=== PATIENT | female | born 1995 | race Caucasian/White ===

== ENCOUNTER 2017-05-11 16:07 | Inpatient (IN) | payer BC, OTHER ==
[~2017-05-11] VITALS: Ht 172.7 cm; Wt 99.8 kg
[2017-05-11] MEDS ORDERED: MAG HYDROX/AL HYDROX/SIMETH 30 ML LIQUID UDC PO PRN (20:00)
[2017-05-11] MEDS ORDERED: diphenhydrAMINE 50 MG CAPSULE PO PRN (20:00)
[2017-05-11] MEDS ORDERED: ONDANSETRON 4 MG/2 ML VIAL IM PRN (20:00)
[2017-05-11] MEDS ORDERED: NICOTINE POLACRILEX 4 MG GUM-PK OF TEN BC PRN (20:00)
[2017-05-11] MEDS ORDERED: ONDANSETRON ODT 4 MG TAB.RAPDIS SL PRN (20:00)
[2017-05-11] MEDS ORDERED: MAGNESIUM HYDROXIDE 30 ML LIQUID UDC PO PRN (20:00)
[2017-05-11] MEDS ORDERED: LORAZEPAM 1 MG TABLET PO PRN (20:00)
[2017-05-11] MEDS ORDERED: MIRALAX 17 GM POWD.PACK PO PRN (20:00)
[2017-05-11] MEDS ORDERED: BUPRENORPHINE HCL 2 MG TAB.SUBL SL PRN (20:00)
[2017-05-11] MEDS ORDERED: DICYCLOMINE HCL 20 MG TABLET PO PRN (20:00)
[2017-05-11] MEDS ORDERED: LOPERAMIDE HCL 2 MG CAPSULE PO PRN ×2 (20:00)
[2017-05-11] MEDS ORDERED: LORAZEPAM 2 MG/1 ML VIAL IM PRN (20:00)
--- NOTE | 2017-05-11 20:05 | NUR ---
INTAKE ASSESSMENT BP: 142/62 HR:101 RR:18, SpO2: 95% T:98.0 Pt is in stable condition and able to be admitted on the unit. Unit protocols regarding mediation administration and vital signs every 4 hours were explained. Pt verbalized understanding. Will continue admission upon arrival on the unit.
[2017-05-11] MEDS ORDERED: RIVA20TA PO (20:14)
[2017-05-11] MEDS ORDERED: DOXE50CA4 PO (20:14)
[2017-05-11 20:53] LABS: *URINE HCG, QUAL NEGATIVE (NEGATIVE)
[2017-05-11] MEDS ORDERED: LORAZEPAM 1 MG TABLET PO SCH (21:00)
[2017-05-11] MEDS ORDERED: BUPRENORPHINE HCL 2 MG TAB.SUBL SL SCH (21:00)
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
[2017-05-11 21:01] LABS: *AMPHETAMINE, URINE NEGATIVE (NEGATIVE); *BARBITURATE, URINE NEGATIVE (NEGATIVE); *CANNABINOID, URINE NEGATIVE (NEGATIVE); *COCCAINE, URINE NEGATIVE (NEGATIVE); *OPIATE, URINE POSITIVE (NEGATIVE); *PHENCYCLIDINE SCREEN,URINE NEGATIVE (NEGATIVE)
[2017-05-11] MEDS: GABAPENTIN 300 MG CAPSULE PO SCH (21:14)
--- NOTE | 2017-05-11 21:15 | NUR ---
ONE TIME SUBUTEX/ATIVAN Pt complains of nausea, body aches, chills, sweats, anxiety, agitation, and irritability. Pt noted with flushed face and facial grimacing. COWS: 12, CIWA:11. One time Subutex and Ativan administered as ordered. Safety measures in place. Will continue to monitor.
[2017-05-11 21:21] LABS: BASOPHILS % (AUTO) 0.7 % (0.0-2.0); EOSINOPHILS # (AUTO) 0.2 K/uL (0.0-0.7); EOSINOPHILS % (AUTO) 3.3 % (0.0-7.0); HEMATOCRIT 35.5 % (31.2-41.9); LYMPHOCYTES # (AUTO) 1.7 K/uL (20.0-40.0); LYMPHOCYTES % (AUTO) 24.4 % (20.5-51.5); MEAN CORPUSCULAR HGB CONC 34 g/dL (32.3-35.6); MEAN CORPUSCULAR VOLUME 79.7 fL (75.5-95.3); MONOCYTES # (AUTO) 0.5 K/uL (2.0-10.0); MONOCYTES % (AUTO) 7.3 % (0.0-11.0); NEUTROPHILS # (AUTO) 4.4 K/uL (1.8-8.9); NEUTROPHILS % (AUTO) 64.3 % (38.5-71.5); PLATELET COUNT (AUTO) 271 K/uL (179-408); RED BLOOD CELL COUNT(AUTO) 4.45 MIL/uL (3.63-4.92); WHITE BLOOD COUNT (AUTO) 6.8 K/uL (3.8-11.8)
[2017-05-11 21:32] LABS: ALANINE AMINOTRANSFERASE 68 U/L (14-59); ALKALINE PHOSPHATASE 71 U/L (50-136); ASPARTATE AMINOTRANSFERASE 42 U/L (15-37); BILIRUBIN,TOTAL 0.7 mg/dL (0.2-1.0); CARBON DIOXIDE 25 mmol/L (21-32); CHLORIDE 101 mmol/L (98-107); GLUCOSE 117 mg/dL (74-106); MAGNESIUM 1.9 mg/dL (1.8-2.4); TOTAL PROTEIN, SERUM 7.3 g/dL (6.4-8.2); UREA NITROGEN, BLOOD 14 mg/dL (7-18)
[2017-05-11 21:37] LABS: POTASSIUM 2.8 mmol/L (3.5-5.1)
[2017-05-11] MEDS ORDERED: POTASSIUM CHLORIDE 20 MEQ TAB.PRT.SR PO ONE (21:45)
--- NOTE | 2017-05-11 22:15 | NUR ---
REASSESSMENT Pt lying in bed with eyes closed noted to be asleep. Breathing is even and unlabored. Safety measures in place. Will continue to monitor.
[2017-05-11 22:17] LABS: ETHANOL < 3 MG/DL (0-0)
--- NOTE | 2017-05-11 22:50 | NUR ---
POTASSIUM Pt noted with potassium 2.8. MD made aware with new order for K-DUR 40meQ administered as ordered. Breathing is even and unlabored, safety measures in place. Will continue to monitor.
[2017-05-11] MEDS ORDERED: NICOTINE 14 MG/24HR PATCH TD PRN (23:00)
--- NOTE | 2017-05-12 01:00 | NUR ---
BEHAVIOR NOTE Pt was noted with odd behavior. Primary nurse checked on pt, pt was in the bathroom for half an hour sitting on the toilet observed to be changing feminine products. Pt stated " I'm just on my period !" Encouraged pt to go back to bed after using the restroom. Pt stated " Okay, I'll be there in a second." Pt was noted to be fatigued, drowsy, defensive, and angry. Provided redirection, and re-oriented pt. Pt verbalized understanding.
--- NOTE | 2017-05-12 01:15 | NUR ---
BEHAVIOR NOTE Pt still noted to be in bathroom. Primary nursed checked on pt. Pt was noted to be sitting on toilet facing the wall in her bra. When asked if pt was okay, pt stated " yeah, I'm fine I'm just on my period." Encouraged pt to get dressed and lay down to try and get some sleep. Pt stated " OK!" Primary nurse in room to observe for pt safety. Pt came out of the bathroom and stated " I don't know what happened, I don't remember anything after my shower." Reoriented pt, and explained to her what happened. Pt verbalized understanding. Assisted pt safely back to bed. Will continue to monitor.
--- NOTE | 2017-05-12 02:21 | NUR ---
PRN ATIVAN Pt noted to be anxious, restless and is continuously going down to smoke. PRN Ativan administered as ordered for CIWA:11. Safety measures in place. Will monitor. Addendum: 05/13/17 at 0239 by JUAN FUNG RN ERROR IN CHARTING. WRONG DATE
--- NOTE | 2017-05-12 03:01 | NUR ---
BEHAVIOR NOTE Per BOTTOM FILLER, pt was noted to be in the bathroom dozing off while sitting on the toilet. Primary nurse and BOTTOM FILLER in pt's room monitoring pt for safety. Pt was starting to get agitated, angry, irritable, impatient, uncooperative and defensive with staff. Pt stated " I'm fine!" Assisted pt safely back to bed, encouraged rest and sleep. Pt then asked " Can I go down to smoke?" Pt was told she is unable to smoke because she was observed to be dozing off in the bathroom, and for safety reasons she is not allowed to smoke at this time. Primary nurse firmly told pt she needs to stay in bed and try to sleep. Pt responded aggressively, "Ugh, fine! Whatever." Side rails up x2 for safety. Call light within reach. Will continue to monitor.
[2017-05-12 04:00] VITALS: BP 133/73
[2017-05-12] MEDS: LORAZEPAM 1 MG TABLET PO PRN ×4 (04:29→17:14)
[2017-05-12] MEDS: METHOCARBAMOL 750 MG TABLET PO PRN (04:29)
--- NOTE | 2017-05-12 04:29 | NUR ---
PRN ATIVAN/ROBAXIN Pt complains of leg cramps, body aches, increased anxiety and agitation, chills and sweats. CIWA:9. PRN Ativan and Robaxin administered as ordered. Safety measures in place. Will continue to monitor.
--- NOTE | 2017-05-12 05:29 | NUR ---
PRN REASSESSMENT PRN medication effective. Pt is lying in bed with eyes closed noted to be asleep. Breathing is even and unlabored, respirations 16, safety measures in place. Will continue to monitor.
--- NOTE | 2017-05-12 07:04 | NUR ---
END OF SHIFT Pt is a 21 year old female patient admitted on 05/11/17 for Heroin withdrawal. Pt remains alert and oriented x4. She is scheduled to start a 5 day Subutex taper today (05/12/17). She received one time orders of Ativan 2 mg and Subutex 4 mg. She was noted with odd behavior during the shift and was observed to be dozing off while in the bathroom and her room. She was noted to be anxious, agitated, irritable, restless, and labile. She also had complaints of body aches, leg cramps, chills and sweats. She received PRN Ativan 1mg and Robaxin at 0429. She took a total of two showers during shift because she said it helps to relieve her leg cramps and body aches. She slept a total of 2 hrs, Intake:855mL, Void:x3, BM:0, Last COWS:9 CIWA:9 at 0400. Breathing is even and unlabored. Safety measures in place. Will endorse to AM shift.
--- NOTE | 2017-05-12 07:45 | NUR ---
START OF SHIFT Endorse rcvd from ongoing nurse, client's room noted with scattered clothes on the floor, several bags of potato chips and candy bars open and spilled on the side table and floor. Client is in bed in a position, a/o to name, place and situation, she presents anxious mood, flat affect, red, teary eyes, runny nose, dark circles under her eyes, flushed face, fine tremors, clammy skin, she has difficulty concentrating. Client reports abdominal cramps, body aches, feeling of panic, cold/chills, restless legs, nausea, and fatigue. Encourage client to increase PO fluid as tolerated to facilitate detox. Encourage client to participate in ADL and to attend group therapy for skills to maintain sober. PRN Ativan 1mg PO for increased anxiety and agitation, chills and sweats, CIWA 9, Robaxin 750mg PO for myalgia. Client slept 2 hrs. Intermittent Pneumatic CD at bedside. Seizure precautions rendered. Call light within reach.
[2017-05-12 08:00] VITALS: BP 115/72
[2017-05-12] MEDS ORDERED: TUBERCULIN,PURIF.PROT.DERIV. 5 TU/0.1 ML TEST ID ONE (09:00)
[2017-05-12] MEDS: GABAPENTIN 300 MG CAPSULE PO SCH ×2 (09:22→20:32)
--- NOTE | 2017-05-12 09:22 | NUR ---
PPD test administered to L forearm, client tolerated well.
--- NOTE | 2017-05-12 09:22 | NUR ---
PRN Ativan 1mg PO administered for anxiety, irritability, intermittent nausea, feeling of panic, restlessness, headache, CIWA 12. Call light within reach.
[2017-05-12] MEDS: BUPRENORPHINE HCL 2 MG TAB.SUBL SL SCH ×3 (09:23→20:34)
[2017-05-12] MEDS: XARELTO 20 MG PO SCH (09:51)
--- NOTE | 2017-05-12 10:22 | NUR ---
Reassess PRN Ativan 1mg PO client is sitting in bed, she is eating a candy bar, watching TV, she stated, "I feel a little bit less anxious.", BRITTANY 8. Call light within reach.
[2017-05-12 12:00] VITALS: BP 122/71
--- NOTE | 2017-05-12 12:14 | NUR ---
PRN Ativan 1mg PO administered for anxiety, irritability, intermittent nausea, feeling of panic, restlessness, headache, difficulty concentrating, CIWA 12. Call light within reach.
--- NOTE | 2017-05-12 13:14 | NUR ---
Reassess PRN Ativan 1mg PO, client stated, "I still feel anxious and irritable, I do not think this medications you are giving me are working." she continues to have intermittent nausea, feeling of panic,and difficulty concentrating, CIWA 8. Call light within reach.
[2017-05-12] MEDS ORDERED: POTASSIUM CHLORIDE 20 MEQ TAB.PRT.SR PO ONE (15:00)
[2017-05-12 16:59] VITALS: BP 109/68
--- NOTE | 2017-05-12 17:14 | NUR ---
PRN Ativan 1mg PO administered for anxiety and irritability, client stated, "Why do you guys have to keep checking on me like every 15 minutes, this is very annoying." she reports intermittent nausea, feeling of panic, restlessness, seats, cold/chills,and difficulty concentrating, CIWA 12. Call light within reach.
--- NOTE | 2017-05-12 18:14 | NUR ---
Reassess PRN Ativan 1mg client is able to walk around the hallway, she took a shower. Client stated, "I am feeling a little bit better, I am still irritable for some reason." BRITTANY 8. Call light within reach.
--- NOTE | 2017-05-12 19:14 | NUR ---
END OF SHIFT Endorsed client to incoming nurse, client is in room, she is a/o x 4, client continues to present with anxious mood, flat affect, runny nose, flushed face, tremors, clammy skin, difficulty concentrating, abdominal cramps, body aches, feeling of panic, cold/chills, restless legs, nausea, and fatigue. Client is not compliant with group therapy due to withdrawal symptoms. PRN Ativan 1mg PO x 3 administered for CIWA 12, see eMAR. Client remains isolated in her room for the most part. Client consumed ~ 50 % of meals. Adequate PO fluid intake 4000mL, void x 10, stool x1. Last CIWA 8/COWS 17 @ 1700. Call light within reach.
--- NOTE | 2017-05-12 19:30 | NUR ---
STAT OF SHIFT Received 21 year old female patient admitted on 05/11/17 for Heroin withdrawal. Pt was started on a 5 day Subutex taper and is scheduled to start a 5 day Ativan taper tonight. Pt is alert and oriented x4. She is noted to be impatient, easily agitated, anxious, irritable, angry, labile, restless, and depressed. She complains of chills, diaphoresis, difficulty concentrating, muscle pain, and restless legs. Last COWS:17, CIWA: 12 at 1700. Breathing is even and unlabored. Safety measures in place. Will continue to monitor.
[2017-05-12 20:00] VITALS: BP 124/89
[2017-05-12] MEDS: CLONIDINE HCL 0.1 MG TABLET PO PRN (20:32)
--- NOTE | 2017-05-12 20:32 | NUR ---
PRN CLONIDINE Pt complains of anxiety, agitation, chills, and sweats. PRN Clonidine administered as ordered. Breathing is even and unlabored. Safety measures in place. Will continue to monitor.
[2017-05-12] MEDS ORDERED: LORAZEPAM 1 MG TABLET PO SCH (21:00)
--- NOTE | 2017-05-12 21:32 | NUR ---
PRN REASSESSMENT PRN medication effective. Pt is lying in bed with eyes closed noted to be asleep. Breathing is even and unlabored, safety measures in place. Will monitor.
[2017-05-13 00:15] VITALS: BP 134/89
[2017-05-13] MEDS: LORAZEPAM 1 MG TABLET PO PRN (02:21)
--- NOTE | 2017-05-13 02:21 | NUR ---
PRN ATIVAN Pt noted to be anxious, restless and is continuously going down to smoke. PRN Ativan administered as ordered for CIWA:11. Safety measures in place. Will monitor.
--- NOTE | 2017-05-13 03:21 | NUR ---
PRN REASSESSMENT PRN medication effective. Pt is lying in bed with eyes closed noted to be asleep. Breathing is even and unlabored. Safety measures in place, 1:1 sitter at bedside. Will monitor.
--- NOTE | 2017-05-13 04:00 | NUR ---
VITALS REFUSED, COWS/CIWA DEFERRED Pt reported she has difficulty sleeping and did not want to be woken up for 0400 vitals. COWS/CIWA deferred d/t pt lying in bed with eyes closed noted to be asleep. Breathing even and unlabored. Safety measures in place. Will continue to monitor.
--- NOTE | 2017-05-13 07:05 | NUR ---
END OF SHIFT Pt is a 21 year old female patient admitted on 05/11/17 for Heroin withdrawal. She continues on a 5 day Subutex and 5 day Ativan taper and is tolerating well. Pt remains alert and oriented x4. She was noted to be drowsy, angry, irritable, restless, anxious, and labile during the shift. She had complaints of complains of body aches, restless legs, anxiety, and agitation. During the shift, she was noted to doze off while sitting up in bed and using the bathroom. Pt was placed on a 1:1 for safety. She received PRN clonidine at 2031 and PRN Ativan at 220. She was able to sleep a total of 4 hrs, Intake: 1460mL, Void: x5, BM:0, COWS: 11, CIWA:11 at 0200. Breathing is even and unlabored. Safety measures in place. Will endorse to AM shift.
--- NOTE | 2017-05-13 07:20 | NUR ---
Nursing note Client refused blood drawn, risk and benefits explained to client, but she still refused. and CN made aware. NNO at this time.
--- NOTE | 2017-05-13 07:35 | NUR ---
START OF SHIFT Endorse rcvd from ongoing nurse, client is sitting in bed, she is a/o to name, place and situation. She presents with anxious mood she constantly runs her hands over her hair, unable to stop moving her legs, flat affect, flushed face, dark eyes under her eyes and dry lips, extremities with clammy skin, goosebump, tremors, difficulty concentrating. Client reports feeling really tired, but unable to shut off her thoughts, she stated, "I have this feelings of panic, you know, like i just can't relax, it's crazy." decrease appetite, cold/chills. Bedside table has 7 open drinks, scattered candies noted on the floor, towels on the floor. Encourage client to increase PO fluid intake to facilitate detox. Encourage client to attend group therapy to learn skills to maintain sobriety. PRN Ativan 1mg PO, Rbaxin 750mg PO and Benadryl 50mg PO administered overnight, see eMar. 1:1 at bedside for safety. Call light within reach.
[2017-05-13 08:11] LABS: HEPATITIS B SURFACE AG Negative (Negative)
--- NOTE | 2017-05-13 08:30 | NUR ---
Client requests to be off 1:1 stating, "I am not a combative person, I don't know why I have to have somebody in my room at all time, this is very annoying, I want you to take this girl out of my room." Educate client on the reason for 1:1 wich is for safety, client was noted to be dozing off while sitting in bed and toilet bowl. She stated, "Yeah, maybe that was yesterday, but not today." CN notified
[2017-05-13 08:31] VITALS: BP 111/74
[2017-05-13] MEDS: GABAPENTIN 300 MG CAPSULE PO SCH ×2 (08:55→21:37)
[2017-05-13] MEDS: LORAZEPAM 1 MG TABLET PO SCH ×2 (08:55→12:31)
[2017-05-13] MEDS: XARELTO 20 MG PO SCH (08:57)
--- NOTE | 2017-05-13 08:57 | NUR ---
Xarelto 20mg PO administered, CN double check/witness administration of medication.
[2017-05-13] MEDS ORDERED: HYDROXYZINE PAMOATE 25 MG CAPSULE PO PRN (09:00)
[2017-05-13] MEDS ORDERED: BUPRENORPHINE HCL 2 MG TAB.SUBL SL SCH (09:00)
--- NOTE | 2017-05-13 09:58 | NUR ---
Therapist prompted client about group times. Client stated she will attend groups today.
--- NOTE | 2017-05-13 10:00 | NUR ---
Client is off 1:1 sitter for safety per Dr[address] Alonso.
[2017-05-13 12:20] VITALS: BP 120/83
[2017-05-13 13:49] LABS: BILIRUBIN,DIRECT 0.1 mg/dL (0.0-0.2); BILIRUBIN,TOTAL 0.3 mg/dL (0.2-1.0); CREATININE 0.9 mg/dL (0.6-1.3); MAGNESIUM 1.7 mg/dL (1.8-2.4); POTASSIUM 4.4 mmol/L (3.5-5.1); TOTAL PROTEIN, SERUM 7.1 g/dL (6.4-8.2)
[2017-05-13] MEDS: BUPRENORPHINE HCL 2 MG TAB.SUBL SL SCH ×2 (14:09→21:37)
[2017-05-13] MEDS ORDERED: MAGNESIUM OXIDE 400 MG TABLET PO ONE (14:45)
[2017-05-13 16:52] VITALS: BP 123/75
[2017-05-13] MEDS ORDERED: LORAZEPAM 1 MG TABLET PO SCH ×2 (17:00→21:00)
--- NOTE | 2017-05-13 19:07 | NUR ---
END OF SHIFT Endorse client to incoming nurse, client is in bed, she sound asleep, easy to arouse, RR 16, even-nonlabored. Client was not compliant with group therapy due to withdrawal symptoms flushed face, clammy skin, goosebump, tremors, difficulty concentrating, decrease appetite, cold/chills. Adequate PO fluid intake 2750mL, void x 10, stool x 1. Consumes ~50 of meals. Last ciwa 13/ COWS 14 @ 1600. Call light within reach.
--- NOTE | 2017-05-13 19:20 | NUR ---
Start of Shift Patient Received. Patient is noted in bed sleeping. Breathing even and non labored. Per endorsement, patient was removed from 1:1 per MD orders. Patient continues on Modified Subutex and Ativan tapers and is tolerating well. Patient is not compliant with group therapy due to increased signs and symptoms of withdrawal. Last noted CIWA 13 and COWS 14. No PRN medications administered. All needs attended to promptly. Will continue to monitor.
[2017-05-13 20:30] VITALS: BP 119/78
--- NOTE | 2017-05-13 22:00 | NUR ---
1:1 Sitter Patient was placed on 1:1 for safety as per orders. Patient is noted falling asleep while standing up and at times while on the smoking patio. Explained to patient of 1:1 sitter and unit protocols if patient continues with behavior. Patient is able to verbalize understanding. Will continue to monitor.
[2017-05-14 00:30] VITALS: BP 136/81
[2017-05-14 04:15] VITALS: BP 128/83
--- NOTE | 2017-05-14 07:24 | NUR ---
End of Shift Patient is noted in bed sleeping. Breathing even and non labored. No signs of restlessness or discomfort noted. Patient remains on 1:1 for safety. She is compliant with SCD pumps while in bed. Patient was place on 1:1 for safety due to patient falling asleep while standing up and while outside in the smoking patio. Patient continues on Modified Subutex and Ativan tapers and is tolerating well. Last noted CIWA 11 and COWS 12. No PRN medications administered. All needs attended to promptly. Will endorse to continue to monitor.
--- NOTE | 2017-05-14 07:45 | NUR ---
START OF SHIFT PT IS A 21 Y/O F ADMITTED FOR OPIATE W/D. LAST COWS 11 AND CIWA 12. PT IS ON A MODIFIED SUBUTEX/ATIVAN TAPER. RECEIVED PT LAYING IN BED WITH SCDS ON, IS A/OX4, RESPIRATIONS EVEN AND UNLABORED. PT APPEARS DROWSY, DISHEVELED, AND GIVES NO EYE CONTACT WHEN TALKING. PT PRESENTS AGITATION, ANXIOUS MOOD, RESTLESSNESS. PT IS ON A 1:1 FOR SAFETY. SIDE RAILS UPX2, BED IS IN LOWEST POSITION. CALL LIGHT WITHIN REACH. WILL CONTINUE TO MONITOR.
[2017-05-14 08:00] VITALS: BP 116/61
[2017-05-14] MEDS: XARELTO 20 MG PO SCH (09:17)
[2017-05-14] MEDS: LORAZEPAM 1 MG TABLET PO SCH ×2 (09:17→14:37)
[2017-05-14] MEDS: BUPRENORPHINE HCL 2 MG TAB.SUBL SL SCH ×3 (09:18→22:01)
[2017-05-14] MEDS: GABAPENTIN 300 MG CAPSULE PO SCH ×3 (09:18→22:00)
--- NOTE | 2017-05-14 10:00 | NUR ---
PT IS OFF 1:1 SITTER PER MD ORDERS.
--- NOTE | 2017-05-14 10:32 | NUR ---
Therapist prompted client to attend all groups while in treatment to increase feelings of being connected to others and not be isolated in bedroom. Therapist explained the benefits of attending groups such as learning new coping tools, learning about feelings/emotions and being able to learn to decrease negative feelings and thoughts
[2017-05-14 12:00] VITALS: BP 133/87
[2017-05-14 16:45] VITALS: BP 123/84
--- NOTE | 2017-05-14 19:23 | NUR ---
END OF SHIFT LAST COWS 12 AND CIWA 10 @1600. NO PRNS GIVEN. 1:1 D/C BY MD @1000. PT WAS UPSET AND CRYING ABOUT NOT BEING ABOUT TO GO TO THE REHAB SHE DESIRED; CASE MANAGEMENT FOUND A REHAB TO SUIT HER NEEDS. ENCOURAGED PT TO PARTICIPATE AND ATTEND GROUPS TO PROMOTE COPING SKILLS; PT VERBALIZED UNDERSTANDING. PT WAS COMPLIANT WITH THERAPEUTIC PLAN OF CARE. SAFETY MEASURES IN PLACE. WILL GIVE ENDORSEMENT TO NURSING INSTRUCTOR.
--- NOTE | 2017-05-14 19:27 | NUR ---
END SHIFT LAST CIWA @1600. CLONIDINE GIVEN FOR BP 147/97, EFFECTIVE UPON REASSESSMENT:127/81. PT PARTICIPATED IN ALL GROUPS AND ACTIVITIES. PT IS TOLERATING ATIVAN TAPER WELL. SAFETY MEASURES IN PLACE. WILL GIVE ENDORSEMENT TO INSURANCE AND FINANCIAL SERVICES AGENT.
[2017-05-14 20:00] VITALS: BP 123/85
--- NOTE | 2017-05-14 20:00 | NUR ---
START OF SHIFT NOTE RECEIVED REPORT FROM DAY SHIFT NURSE. PATIENT IS A 21 YEAR OLD FEMALE ADMITTED FOR OPIATE WITHDRAWAL. PATIENT IS ON HER 3RD DAY OF HER 5 DAY ATIVAN AND 5 DAY SUBUTEX TAPER. PATIENT DID NOT REQUIRE PRN MEDICATION. LAST COWS 12 AND CIWA 10. RECEIVED PATIENT IN THE ROOM, ALERT AND ORIENTED X 4. PATIENT SAD, DEPRESSED, AVOIDANT EYE CONTACT, FLUSHED AND PRESSURED SPEECH. SHE C/O BACK PAIN /. SAFETY MEASURES IN PLACE. CALL LIGHT IN REACH. WILL CONTINUE TO MONITOR.
[2017-05-14] MEDS ORDERED: LORAZEPAM 1 MG TABLET PO SCH (21:00)
[2017-05-14] MEDS: BACLOFEN 10 MG TABLET PO SCH (22:00)
[2017-05-14] MEDS: METHOCARBAMOL 750 MG TABLET PO PRN (23:04)
--- NOTE | 2017-05-14 23:04 | NUR ---
PRN ROBAXIN ADMINISTRATION PATIENT C/O RESTLESS LEGS. WILL MONITOR FOR EFFECTIVENESS
[2017-05-15] VITALS: BP 131/77
--- NOTE | 2017-05-15 00:04 | NUR ---
LENCHO HOUSE RE-ASSESSMENT PATIENT STATES NO PAIN AT THIS TIME
--- NOTE | 2017-05-15 01:29 | NUR ---
PRN VISTARIL ADMINISTRATION PATIENT ANXIOUS AND UNABLE TO SLEEP. WILL MONITOR FOR EFFECTIVENESS
--- NOTE | 2017-05-15 02:29 | NUR ---
PRN VISTARIL RE-ASSESSMENT PATIENT STATES VISTARIL INEFFECTIVE. SHE WILL TRY TO GO AND SLEEP AFTER SMOKING.
--- NOTE | 2017-05-15 07:22 | NUR ---
END OF SHIFT NOTE PATIENT SLEPT 2 HOURS. FLUID INTAKE OF 1,000 ML. VOIDED X 3. NO BM. MEDICATION GIVEN ORDERED WITH NO ADVERSE REACTION. PATIENT PATIENT WAS GIVEN PRN ROBAXIN FOR RESTLESS LEGS. PATIENT NOTED ANXIOUS DURING SHIFT, PATIENT KEEPS ON GOING FOR SMOKE. PATIENT HAD DIFFICULTY STAYING ASLEEP. SHE REFUSED TO TAKE BENADRYL , PRN VISTARIL GIVEN. LAST SAFETY MEASURES IN PLACE. CALL LIGHT IN REACH. WILL CONTINUE TO MONITOR. COWS 4 AND CIWA 2 AT MIDNIGHT.
--- NOTE | 2017-05-15 07:45 | NUR ---
START OF SHIFT Received report from transformation manager nurse. Pt is lying in bed resting and is easily arousable. She is a 21 yo female admitted to [facility] on 05/11 for opiate and BZD dependence. She continues on 5 day Ativan and Subutex tapers. Pt has difficulty staying asleep and only had 2 hours of sleep on the transformation manager. Pt's appearance is disheveled and she is easily irritated. Her eyes are red with dark circles around them. She has hypoactive body movement and difficulty concentrating. Safety measures in place.
[2017-05-15 08:00] VITALS: BP 108/60
[2017-05-15] MEDS ORDERED: TRAZODONE 50 MG TABLET PO PRN (08:45)
[2017-05-15] MEDS ORDERED: BUPRENORPHINE HCL 2 MG TAB.SUBL SL SCH (09:00)
[2017-05-15] MEDS ORDERED: LORAZEPAM 1 MG TABLET PO SCH (09:00)
[2017-05-15] MEDS: GABAPENTIN 300 MG CAPSULE PO SCH ×2 (10:00→15:22)
[2017-05-15] MEDS: IBUPROFEN 600 MG TABLET PO PRN (10:00)
[2017-05-15] MEDS: BACLOFEN 10 MG TABLET PO SCH ×3 (10:00→20:41)
--- NOTE | 2017-05-15 10:00 | NUR ---
PRN Motrin Pt c/o headache 07/15. PRN Motrin administered.
[2017-05-15] MEDS: RIVAROXABAN 10 MG TABLET PO SCH (10:03)
--- NOTE | 2017-05-15 11:00 | NUR ---
PRN Motrin reassessment PRN Motrin effective. Pt reports headache is relieved.
[2017-05-15 12:30] VITALS: BP 110/54
[2017-05-15] MEDS ORDERED: KETOROLAC TROMETHAMINE 30 MG INJ IM PRN (12:30)
[2017-05-15] MEDS: METHOCARBAMOL 750 MG TABLET PO PRN (13:40)
--- NOTE | 2017-05-15 13:40 | NUR ---
PRN Robaxin Pt reports back pain 08/15. PRN Robaxin administered.
[2017-05-15] MEDS ORDERED: HYDR-3895 PO (13:41)
[2017-05-15] MEDS ORDERED: CLON0.1T14 PO (13:41)
[2017-05-15] MEDS ORDERED: IBUP-1955 PO (13:41)
[2017-05-15] MEDS ORDERED: DICY20TA28 PO (13:41)
[2017-05-15] MEDS ORDERED: TRAZ-144 PO (13:41)
[2017-05-15] MEDS ORDERED: BACL10TA PO (13:41)
[2017-05-15] MEDS ORDERED: GABA-534 PO ×2 (13:41)
--- NOTE | 2017-05-15 14:40 | NUR ---
PRN Robaxin reassessment PRN Robaxin effective. Pt's pain level reduced to 4/10.
[2017-05-15 15:15] VITALS: BP 124/88
[2017-05-15] MEDS: LORAZEPAM 1 MG TABLET PO SCH ×2 (15:23→20:41)
[2017-05-15] MEDS: BUPRENORPHINE HCL 2 MG TAB.SUBL SL SCH ×2 (15:23→20:41)
[2017-05-15 16:30] VITALS: BP 118/82
--- NOTE | 2017-05-15 19:09 | NUR ---
END OF SHIFT Report provided to auto service mechanic nurse. Pt is attending a group meeting. She is a 21 yo female admitted to [facility] on 05/11 for opiate and BZD dependence. She continues on 5 day Ativan and Subutex tapers. Pt is labile and at times irritable. She is unkempt, smells of cigarette smoke, and there is food on the floor around her room. PRN Motrin and Robaxin administered. Psychiatrist added PRN Trazodone due to difficulty sleeping at night. Last COWS 5 and CIWA 5. She drank 3350mL. Pt did not manage to attend all group meetings due to lack of motivation. Encouraged attendance. Safety measures in place.
[2017-05-15 20:00] VITALS: BP 139/66
--- NOTE | 2017-05-15 20:00 | NUR ---
START OF SHIFT NOTE RECEIVED REPORT FROM DAY SHIFT NURSE. PATIENT IS A 21 YEAR OLD FEMALE ADMITTED FOR OPIATE/BENZO WITHDRAWAL.CONTINUE ON ATIVAN AND SUBUTEX TAPER, TOLERATED WELL AND NO ADVERSE REACTION NOTED. PATIENT WAS GIVEN VISTARIL AND ROBAXIN. LAST COWS 5 AND CIWA 5. PATIENT WITH NEW ORDER OF TRAZADONE. RECEIVED PATIENT IN THE ROOM. PATIENT SAD, FLAT AFFECT,DISHEVELED, ANXIOUS, FLUSHED, SWEATING AND C/O BACK PAIN. SAFETY MEASURES IN PLACE. CALL LIGHT IN REACH. WILL CONTINUE TO MONITOR
[2017-05-15] MEDS ORDERED: GABAPENTIN 300 MG CAPSULE PO SCH (21:00)
[2017-05-16] VITALS: BP 135/76
--- NOTE | 2017-05-16 04:00 | NUR ---
CIWA/COWS DEFERRED PATIENT IN BED WITH EYES CLOSED. VS REFUSED. RESPIRATION EVEN AND UNLABORED. WILL CONTINUE TO MONITOR
--- NOTE | 2017-05-16 07:20 | NUR ---
END OF SHIFT NOTE PATIENT SLEPT 5 HOURS. FLUID INTAKE 1,596 ML. VOIDED X 4. NO BM. PATIENT MONITORED THROUGHOUT SHIFT. PATIENT CONTINUE ON ATIVAN AND SUBUTEX TAPER, TOLERATED WELL AND NO ADVERSE REACTION NOTED. PATIENT COMPLIANT WITH TREATMENT PLAN. PATIENT WAS SAD, FLAT AFFECT,DISHEVELED, ANXIOUS, FLUSHED, SWEATING AND C/O BACK PAIN BEGINNING OF SHIFT. PATIENT DID NOT REQUIRE PRN MEDICATION. LAST COWS 5 AND CIWA 3. PATIENT SLEPT INTERMITTENTLY BUT REFUSED TO HAVE SLEEP MEDS, EXPLAINED RISKS/BENEFITS. SAFETY MEASURES IN PLACE. CALL LIGHT IN REACH. WILL CONTINUE TO MONITOR
--- NOTE | 2017-05-16 07:50 | NUR ---
START OF SHIFT NOTE Patient is 21 year old female admitted for ETOH/Opioid withdrawal. Patient cont with 5 days Ativan/Subutex taper tolerating well. Per endorsement patient was given did not receive any PRN'S slept for 5 hours and last CIWA score was-3/COWS-5. Patient received alert awake, complaining of back pain, anxious, agitated, hot cold flashes, sweats, unable to concentrate, light headed. Educated patient with plan of the day and importance of compliant to medication and treatment with good verbal understanding. Safety measures in place. Will cont with plan of care.
[2017-05-16 08:00] VITALS: BP 138/88
[2017-05-16] MEDS: BACLOFEN 10 MG TABLET PO SCH ×3 (08:56→20:59)
[2017-05-16] MEDS: RIVAROXABAN 10 MG TABLET PO SCH (08:57)
--- NOTE | 2017-05-16 08:57 | NUR ---
PRN MOTRIN Patient c/o of lower back pain 06/15. PRN Motrin 600mg PO given as ordered. Will cont to monitor and reassess the pt.
[2017-05-16] MEDS: GABAPENTIN 300 MG CAPSULE PO SCH ×3 (08:59→21:00)
[2017-05-16] MEDS ORDERED: LORAZEPAM 1 MG TABLET PO SCH (09:00)
[2017-05-16] MEDS ORDERED: BUPRENORPHINE HCL 2 MG TAB.SUBL SL SCH (09:00)
--- NOTE | 2017-05-16 09:57 | NUR ---
MOTRIN REASSESSMENT Per pt Motrin was effective in alleviating her lower back pain 04/17.
[2017-05-16 12:00] VITALS: BP 118/74
[2017-05-16] MEDS ORDERED: GABA-534 PO (14:52)
[2017-05-16 16:00] VITALS: BP 137/61
[2017-05-16] MEDS: IBUPROFEN 600 MG TABLET PO PRN (16:23)
--- NOTE | 2017-05-16 19:29 | NUR ---
END OF SHIFT NOTE Patient is alert awake oriented. Patient presented with anxiety, agitation, worried, labile facial expression, back pain. Patient continues with Subutex/Ativan taper tolerating well. During shift patient received PRN Motrin 600mg PO noted to be effective. Vital signs WNL. Skin intact warm and dry to touch. Encourage pt to develop coping skills and utilization of non pharmacological intervention. Patient was encouraged to participates in groups therapy session. Encourage diversional activities to alleviate anxiety. Patient set for discharge in am. Patient denies any SI/HI. Safety measures in place. Patient endorsed to night nurse in stable condition.
[2017-05-16 20:00] VITALS: BP 140/79
--- NOTE | 2017-05-16 20:00 | NUR ---
Start of Shift Pt is a 21 year old female admitted for Opiate/Benzo withdrawal. Pt placed on 5 day Ativan and 5 day Subutex taper - completed. At time of assessment, Pt presents in room, reports feeling anxious, clothes is thrown all over room, is hyperverbal regarding discharge tomorrow, skin is clammy and flushed, reports body aches. Education provided regarding coping mechanisms. Medications due, safety measures in place, will continue to monitor.
[2017-05-16] MEDS: CLONIDINE HCL 0.1 MG TABLET PO PRN (23:56)
--- NOTE | 2017-05-16 23:56 | NUR ---
PRN Administration Clonidine 0.1mg PRN administered for anxiety and restlessness. Pt is noted pacing in room. Safety measures in place, will continue to monitor.
[2017-05-17] VITALS: BP 128/75
--- NOTE | 2017-05-17 00:56 | NUR ---
PRN Reassessment Upon reassessment, pt is noted in bed, sleeping with eyes closed, resp even/unlabored. Clonidine effective. safety measures in place, will continue to monitor.
--- NOTE | 2017-05-17 04:00 | NUR ---
BRITTANY/GITA deferred d/t pt sleeping, to assess while pt is awake as ordered. Pt refused to be woken up for VS assessment Safety measures in place, will continue to monitor.
--- NOTE | 2017-05-17 07:02 | NUR ---
End of Shift Pt is a 21 year old female admitted for Opiate/Benzo withdrawal. Pt placed on 5 day Ativan and 5 day Subutex taper - completed. During shift, Pt presented with anxiety, clothes seen thrown all over room, hyperverbal regarding discharge today, skin is clammy and flushed, reports body aches - scheduled medications administered, latest COWS 5 & CIWA 5. Education provided regarding coping mechanisms - pt verbalized understanding, pt is scheduled for discharge today. Clonidine 0.1mg PRN administered for anxiety. Pt slept for 5 hours, intake of 1683 ml PO, voids x4 and stool x0. Safety measures in place, Endorsed to day shift nurse.
--- NOTE | 2017-05-17 07:50 | NUR ---
START OF SHIFT NOTE Patient is 21 year old female admitted for ETOH/Opioid withdrawal. Patient completed her 5 days Ativan/Subutex taper tolerated well. Per endorsement patient received PRN Clonidine, slept for 5 hours and last CIWA score was-5/COWS-5. Patient received alert awake,anxious, agitated. Patient scheduled for discharge today. Educated patient with plan of care of rehab and importance of compliant to medication and treatment with good verbal understanding. Safety measures in place. Will cont with plan of care.
[2017-05-17 08:00] VITALS: BP 101/62
[2017-05-17] MEDS: GABAPENTIN 300 MG CAPSULE PO SCH (08:46)
[2017-05-17] MEDS: BACLOFEN 10 MG TABLET PO SCH (08:46)
[2017-05-17] MEDS: RIVAROXABAN 10 MG TABLET PO SCH (08:47)
--- NOTE | 2017-05-17 09:30 | NUR ---
DISCHARGE NOTE Patient has been discharged from [facility] [place] [place] Patient is in Stable condition, VS WNL. Denies suicidal and homicidal ideations at this time. All documentation has been completed, paperwork signed and dated. Pt left with all of her belongings, medications and prescriptions. Pt has been discharged from [facility] on 05/17/17 at 0930. has been Notified.
[2017-08-11] MEDS ORDERED: GABA-534 PO (08:07)
[2017-08-11] MEDS ORDERED: METH-406 PO (08:07)
[2017-08-11] MEDS ORDERED: HYDR-3895 PO (08:07)
== END 2017-05-17 09:30 | disposition other institution (70) | DRG 895 ==
LOC: SRC 19:29
PROVIDERS: ADMIT Internal Medicine; ATTEND Internal Medicine
PROC: HZ2ZZZZ Detoxification Services for Substance Abuse Treatment (ICD-10-PCS; principal; 2017-05-11)
PROC: HZ31ZZZ Individual Counseling for Substance Abuse Treatment, Behavioral (ICD-10-PCS; 2017-05-14)
PROC: HZ41ZZZ Group Counseling for Substance Abuse Treatment, Behavioral (ICD-10-PCS; 2017-05-14)
DX: F11.23 Opioid dependence with withdrawal (principal); E83.42 Hypomagnesemia; I27.82 Chronic pulmonary embolism; E87.1 Hypo-osmolality and hyponatremia; E87.6 Hypokalemia; F13.239 Sedative, hypnotic or anxiolytic dependence with withdrawal, unspecified; F17.210 Nicotine dependence, cigarettes, uncomplicated; Z59.0 Homelessness; Z81.1 Family history of alcohol abuse and dependence; Z81.8 Family history of other mental and behavioral disorders; Z87.892 Personal history of anaphylaxis; Z88.6 Allergy status to analgesic agent; Z59.1 Inadequate housing; F41.9 Anxiety disorder, unspecified; Z79.01 Long term (current) use of anticoagulants; G47.00 Insomnia, unspecified; R74.0 Nonspecific elevation of levels of transaminase and lactic acid dehydrogenase [LDH]
CPT/HCPCS: 36415; 70030-TC; 80307; 80361; 83735; 84703; 85025; 86580; 86592; 86705; 86803; 87340; 87806; A4663; G0480; Q0163